=== PATIENT | female | born 1965 | race Caucasian/White ===

== ENCOUNTER 2020-02-25 21:54 | Inpatient (IN) | payer OTHER ==
[2020-02-25] MEDS ORDERED: SODIUM CHLORIDE 0.9% 500 ML 500 ML IV STA (22:12)
[2020-02-25] MEDS ORDERED: ONDANSETRON 4 MG/2 ML VIAL IVP STA (22:12)
[2020-02-25] MEDS ORDERED: KETOROLAC 15 MG/ML 1 ML VIAL IVP STA (22:12)
[2020-02-25] MEDS ORDERED: SODIUM CHLORIDE 0.9% 1,000 ML IV STA (22:12)
[2020-02-25] MEDS ORDERED: ACETAMINOPHEN TAB 325 MG TAB PO STA (22:13)
--- NOTE | 2020-02-25 22:18 | ED ---
Abdominal Pain HPI - General Chief Complaint: Abdominal Pain Stated Complaint: ABD pain Time Seen by Provider: 02/25/20 22:04 Source: patient, RN notes reviewed Mode of arrival: ambulatory Limitations: no limitations - History of Present Illness Initial Comments: This is a 55-year-old female presents emergency Department with chief complaint of abdominal pain, fever. Symptoms started late Monday into Monday. She states that she noticed she did not feel all that she had a fever and started having some abdominal pain. She states it's in her upper and lower abdomen slightly worse on the right compared to the left. Patient did have some nausea vomiting states is related to fever and not feeling well with the pain. Patient has noticed some dysuria but states has now improved. He was taking some Motrin and some cold medications at home she is not taking any recently. No cough or cold-like symptoms no chest pain or shortness breath no headache no dizziness. Patient's had 3 sections no other abdominal surgeries. - Related Data Home Medications Medication Instructions Recorded Confirmed Ibuprofen [Motrin Ib] 800 mg PO Q6H PRN 02/25/20 02/25/20 Allergies Allergy/AdvReac Type Severity Reaction Status Date / Time No Known Allergies Allergy Verified 02/25/20 22:31 Review of Systems ROS Statement: Those systems with pertinent positive or pertinent negative responses have been documented in the HPI. ROS Other: All systems not noted in ROS Statement are negative. Past Medical History Past Medical History: No Reported History History of Any Multi-Drug Resistant Organisms: None Reported Past Surgical History: Section Past Psychological History: No Psychological Hx Reported Smoking Status: Current every day smoker Past Alcohol Use History: Daily Past Drug Use History: None Reported General Exam Limitations: no limitations General appearance: alert, in no apparent distress Head exam: Present: atraumatic, normocephalic, normal inspection Eye exam: Present: normal appearance, PERRL, EOMI. Absent: scleral icterus, conjunctival injection, periorbital swelling ENT exam: Present: normal exam, mucous membranes moist Neck exam: Present: normal inspection, full ROM. Absent: tenderness, meningismus, lymphadenopathy Respiratory exam: Present: normal lung sounds bilaterally. Absent: respiratory distress, wheezes, rales, rhonchi, stridor Cardiovascular Exam: Present: normal rhythm, tachycardia, normal heart sounds. Absent: systolic murmur, diastolic murmur, rubs, gallop, clicks GI/Abdominal exam: Present: soft, tenderness (Right-sided with mild diffuse), normal bowel sounds. Absent: distended, guarding, rebound, rigid Back exam: Present: CVA tenderness (R). Absent: CVA tenderness (L) Neurological exam: Present: alert Skin exam: Present: warm, dry, intact, normal color. Absent: rash Course Vital Signs 02/25/20 21:58 Temperature 101.1 F H Pulse Rate 132 H Respiratory 20 Rate Blood Pressure 167/85 O2 Sat by Pulse 99 Oximetry Medical Decision Making - Medical Decision Making 55-year-old presented to [facility] for abdominal pain fever. Patient's found to have diverticulitis, bilateral pyelonephritis. Patient was started on broad-sp ectrum antibiotics but cultures are drawn patient will be admitted for further treatment and management. - Lab Data Result diagrams: 02/25/20 22:29 02/25/20 22:40 Lab Results 02/25/20 02/25/20 02/25/20 Range/Units 22:29 22:29 22:29 WBC 13.1 H (3.8-10.6) k/uL RBC 3.99 (3.80-5.40) m/uL Hgb 13.0 (11.4-16.0) gm/dL Hct 38.7 (34.0-46.0) % MCV 97.1 (80.0-100.0) fL MCH 32.5 (25.0-35.0) pg MCHC 33.5 (31.0-37.0) g/dL RDW 13.2 (11.5-15.5) % Plt Count 202 (150-450) k/uL MPV 7.8 Neutrophils % 84 % Lymphocytes % 5 % Monocytes % 8 % Eosinophils % 1 % Basophils % 0 % Neutrophils # 10.9 H (1.3-7.7) k/uL Lymphocytes # 0.6 L (1.0-4.8) k/uL Monocytes # 1.0 (0-1.0) k/uL Eosinophils # 0.2 (0-0.7) k/uL Basophils # 0.0 (0-0.2) k/uL Sodium (137-145) mmol/L Potassium (3.5-5.1) mmol/L Chloride (98-107) mmol/L Carbon Dioxide (22-30) mmol/L Anion Gap mmol/L BUN (7-17) mg/dL Creatinine (0.52-1.04) mg/dL Est GFR (CKD-EPI)AfAm (>60 ml/min/1.73 sqM) Est GFR (CKD-EPI)NonAf (>60 ml/min/1.73 sqM) Glucose (74-99) mg/dL Plasma Lactic Acid Phu 1.4 (0.7-2.0) mmol/L Calcium (8.4-10.2) mg/dL Total Bilirubin (0.2-1.3) mg/dL AST (14-36) U/L ALT (4-34) U/L Alkaline Phosphatase (38-126) U/L Total Protein (6.3-8.2) g/dL Albumin (3.5-5.0) g/dL Amylase (30-110) U/L Lipase (23-300) U/L Urine Color Yellow Urine Appearance Cloudy H (Clear) Urine pH 6.5 (5.0-8.0) Ur Specific [place] 1.011 (1.001-1.035) Urine Protein 2+ H (Negative) Urine Glucose (UA) Negative (Negative) Urine Ketones Negative (Negative) Urine Blood Large H (Negative) Urine Nitrite Negative (Negative) Urine Bilirubin Negative (Negative) Urine Urobilinogen <2.0 (<2.0) mg/dL Ur Leukocyte Esterase Moderate H (Negative) Urine RBC 63 H (0-5) /hpf Urine WBC 91 H (0-5) /hpf Urine Bacteria Occasional H (None) /hpf Urine Mucus Rare H (None) /hpf 02/25/20 Range/Units 22:40 WBC (3.8-10.6) k/uL RBC (3.80-5.40) m/uL Hgb (11.4-16.0) gm/dL Hct (34.0-46.0) % MCV (80.0-100.0) fL MCH (25.0-35.0) pg MCHC (31.0-37.0) g/dL RDW (11.5-15.5) % Plt Count (150-450) k/uL MPV Neutrophils % % Lymphocytes % % Monocytes % % Eosinophils % % Basophils % % Neutrophils # (1.3-7.7) k/uL Lymphocytes # (1.0-4.8) k/uL Monocytes # (0-1.0) k/uL Eosinophils # (0-0.7) k/uL Basophils # (0-0.2) k/uL Sodium 127 L (137-145) mmol/L Potassium 3.1 L (3.5-5.1) mmol/L Chloride 94 L (98-107) mmol/L Carbon Dioxide 26 (22-30) mmol/L Anion Gap 7 mmol/L BUN 11 (7-17) mg/dL Creatinine 0.57 (0.52-1.04) mg/dL Est GFR (CKD-EPI)AfAm >90 (>60 ml/min/1.73 sqM) Est GFR (CKD-EPI)NonAf >90 (>60 ml/min/1.73 sqM) Glucose 150 H (74-99) mg/dL Plasma Lactic Acid Phu (0.7-2.0) mmol/L Calcium 8.1 L (8.4-10.2) mg/dL Total Bilirubin 0.5 (0.2-1.3) mg/dL AST 24 (14-36) U/L ALT 25 (4-34) U/L Alkaline Phosphatase 87 (38-126) U/L Total Protein 6.1 L (6.3-8.2) g/dL Albumin 3.3 L (3.5-5.0) g/dL Amylase 33 (30-110) U/L Lipase 57 (23-300) U/L Urine Color Urine Appearance (Clear) Urine pH (5.0-8.0) Ur Specific [place] (1.001-1.035) Urine Protein (Negative) Urine Glucose (UA) (Negative) Urine Ketones (Negative) Urine Blood (Negative) Urine Nitrite (Negative) Urine Bilirubin (Negative) Urine Urobilinogen (<2.0) mg/dL Ur Leukocyte Esterase (Negative) Urine RBC (0-5) /hpf Urine WBC (0-5) /hpf Urine Bacteria (None) /hpf Urine Mucus (None) /hpf Disposition Clinical Impression: Diverticulitis, Pyelonephritis Disposition: ADMITTED IP TO THIS [facility] Condition: Fair Referrals: None,Stated [Primary Care Provider] - 1-2 days
[2020-02-25 22:52] LABS: Appearance,Urine Cloudy (Clear); Bacteria,Urine Occasional /hpf; Bilirubin,Urine Negative (Negative); Blood,Urine Large (Negative); Color,Urine Yellow; Glucose,Urine (UA) Negative (Negative); Ketones,Urine Negative (Negative); Leukocyte Esterase,Urine Moderate (Negative); Mucus,Urine Rare /hpf; Nitrite,Urine Negative (Negative); PH, Urine 6.5 (5.0-8.0); Protein,Urine 2+ (Negative); RBC,Urine 63 /hpf (0-5); Specific Gravity,Urine 1.011 (1.001-1.035); Urobilinogen,Urine <2.0 mg/dL (<2.0); WBC,Urine 91 /hpf (0-5)
[2020-02-25 23:03] LABS: ALT 25 U/L (4-34); AST 24 U/L (14-36); African American GFR (CKD) >90 (>60 ml/min/1.73 sqM); Albumin 3.3 g/dL (3.5-5.0); Alkaline Phosphatase 87 U/L (38-126); Amylase 33 U/L (30-110); Anion Gap 7 mmol/L; Blood Urea Nitrogen 11 mg/dL (7-17); Calcium 8.1 mg/dL (8.4-10.2); Carbon Dioxide 26 mmol/L (22-30); Chloride 94 mmol/L (98-107); Glucose 150 mg/dL (74-99); Lipase 57 U/L (23-300); Non-African American GFR(CKD) >90 (>60 ml/min/1.73 sqM); Potassium 3.1 mmol/L (3.5-5.1); Sodium 127 mmol/L (137-145); Total Bilirubin 0.5 mg/dL (0.2-1.3); Total Protein 6.1 g/dL (6.3-8.2)
[2020-02-25 23:03] LABS: Basophils % (A) 0 %; Eosinophils # (A) 0.2 k/uL (0-0.7); Eosinophils % (A) 1 %; HCT 38.7 % (34.0-46.0); Lymphocytes # (A) 0.6 k/uL (1.0-4.8); Lymphocytes % (A) 5 %; MCH 32.5 pg (25.0-35.0); MCHC 33.5 g/dL (31.0-37.0); MCV 97.1 fL (80.0-100.0); Mean Platelet Volume 7.8; Monocytes % (A) 8 %; Neutrophils # (A) 10.9 k/uL (1.3-7.7); Neutrophils % (A) 84 %; Platelet Count 202 k/uL (150-450); RBC 3.99 m/uL (3.80-5.40); RDW 13.2 % (11.5-15.5); WBC 13.1 k/uL (3.8-10.6)
--- NOTE | 2020-02-25 23:22 | CT ---
EXAMINATION TYPE: CT abdomen pelvis w con DATE OF EXAM: 02/25/2020 COMPARISON: None HISTORY: Abd Pain CT DLP: 1173.90 mGycm Automated exposure control for dose reduction was used. CONTRAST: Performed with IV Contrast, patient injected with 100 mL of Isovue 300. Images obtained from the diaphragm to the floor the pelvis with IV contrast. FINDINGS: Lung bases are clear. There is no pleural effusion. Heart size is normal. There is no pericardial eff usion. Liver spleen stomach pancreas gallbladder appear intact. Bile ducts are not dilated. There is rounded 1.8 cm left adrenal mass intermediate density. There is opacification of both kidneys. There is 2 cm cortical cyst anterior right kidney. There is h eterogeneous cortical enhancement of both kidneys on the delayed images. There is no hydronephrosis. Ureters are not dilated. There is no evidence of retroperitoneal adenopathy. Bladder distends smoothl y. Uterus is anteverted. There is no free fluid in the pelvis. There is no pelvic mass. There are mul tiple sigmoid diverticula. There is some mild fat stranding in the left paracolic gutter adjacent to the proximal sigmoid colon. There is no ascites or free air. There is no bowel obstruction. There is no mesenteric edema. Lumbar vertebra have normal alignment. There is vacuum disc at L5-S1. Facet joints are intact. The bony pelv is is intact. IMPRESSION: Mild inflammatory changes in the left paracolic gutter consistent with some focal diverticulitis invo lving the proximal sigmoid colon. Moderate sigmoid diverticulosis. Heterogeneous enhancement of the renal cortex of both kidneys could relate to multifocal ischemia or multifocal pyelonephritis.
[2020-02-25] MEDS ORDERED: PIPERACILLIN-TAZOBACTAM 3.375 GM in SODIUM CHLORIDE 0.9% 100 ML IVPB STA (23:34)
[2020-02-25] MEDS ORDERED: HYDROmorphone 0.5 MG/0.5 ML SYRINGE IVP STA (23:37)
[2020-02-25] MEDS ORDERED: KETOROLAC 15 MG/ML 1 ML VIAL IVP PRN (23:38)
[2020-02-25] MEDS ORDERED: ACETAMINOPHEN TAB 325 MG TAB PO PRN (23:38)
[2020-02-25] MEDS ORDERED: NALOXONE 0.4 MG/ML 1 ML VIAL IV PRN (23:38)
[2020-02-25] MEDS ORDERED: HYDROmorphone 0.5 MG/0.5 ML SYRINGE IVP PRN (23:38)
[2020-02-26] MEDS: PIPERACILLIN-TAZOBACTAM 3.375 GM in SODIUM CHLORIDE 0.9% 100 ML IVPB SCH ×4 (00:47→23:12)
[2020-02-26] MEDS: HYDROmorphone 1 MG/ML 1 ML SYRINGE IVP PRN (02:27)
[2020-02-26] MEDS: SODIUM CHLORIDE 0.9% 1,000 ML IV SCH ×3 (02:38→17:36)
[2020-02-26 06:13] LABS: Basophils % (A) 0 %; Eosinophils # (A) 0.1 k/uL (0-0.7); Eosinophils % (A) 1 %; HGB 11.4 gm/dL (11.4-16.0); Lymphocytes # (A) 0.5 k/uL (1.0-4.8); Lymphocytes % (A) 5 %; MCHC 34.6 g/dL (31.0-37.0); MCV 98.3 fL (80.0-100.0); Mean Platelet Volume 7.1; Monocytes # (A) 0.9 k/uL (0-1.0); Monocytes % (A) 9 %; Neutrophils # (A) 8.1 k/uL (1.3-7.7); Neutrophils % (A) 82 %; Platelet Count 174 k/uL (150-450); RBC 3.35 m/uL (3.80-5.40); RDW 12.7 % (11.5-15.5); WBC 9.9 k/uL (3.8-10.6)
[2020-02-26] MEDS: PANTOPRAZOLE 40 MG/10 ML VIAL IV SCH ×2 (08:00→17:36)
[2020-02-26 16:34] LABS: African American GFR (CKD) 119.8 (60.0-200.0); Anion Gap 11.3 mmol/L (4.00-12.00); BUN/Creat Ratio 18.33 Ratio (12.00-20.00); Calcium 7.6 mg/dL (8.7-10.3); Carbon Dioxide 24.7 mmol/L (21.6-31.8); Non-African American GFR(CKD) 103.3 (60.0-200.0)
[2020-02-26] MEDS: HEPARIN SODIUM,PORCINE 5,000 UNIT/ML 1 ML VIAL SQ SCH (17:36)
[2020-02-26] MEDS ORDERED: POTASSIUM CHLORIDE ER 20 MEQ TAB.ER PO STA (19:08)
[2020-02-26] MEDS: HYDROcodone/APAP 5-325MG 1 EACH TAB PO PRN (19:36)
[2020-02-26] MEDS: ONDANSETRON 4 MG/2 ML VIAL IVP PRN (20:25)
[2020-02-26] MEDS ORDERED: Potassium Replacement Protocol 1 EACH MISC MISCELLANE PRN (21:29)
--- NOTE | 2020-02-26 21:33 | P.HPIM ---
History of Present Illness H&P Date: 02/26/20 Chief Complaint: Abdominal pain. Patient is a 55-year-old female with a known history of smoking and alcohol use presents to ER with complaints of abdominal pain and fever. Patient states her symptoms started on Monday night patient was having abdominal pain in the upper abdomen and got worse. Later patient developed lower abdominal pain mainly on the left side.Patient also developed fever at home. Patient was nauseated. No episodes of vomiting. Denies any dysuria or hematuria. No cough or sputum production. No chest pain or shortness breath. No runny nose. No recent illnesses or sick contacts. Denies any diarrhea. CT of the abdomen pelvis showed mild inflammatory changes in the left paracolic gutter consistent with some focal diverticulitis involving the proximal sigmoid colon. Moderate sigmoid diverticulosis. Heterogeneous enhancement of the renal cortex in both kidneys could relate to multifocal ischemia multifocal pyelonephritis. Patient was febrile with T-max 101.1 and tachycardic on admission. Pulse ox 99% on room air. Laboratory data showed WBC 13.1, hemoglobin 13.0 and platelets 202 Lymphocyte 0.6 Sodium 127, potassium 3.1 and chloride 94 procalcitonin level 0.35 Urinalysis showed cloudy with 2+ protein large blood and moderate leukocyte esterase with elevated WBCs and RBCs. C. difficile is negative. Review of Systems Constitutional: Fever and chills. . No generalized weakness or weight loss. Abdomen: Patient does have nausea with no episodes of vomiting. Abdominal pain. No diarrhea.n. Cardiovascular: Patient denies any chest pain or short of breath no palpitations. Respiratory: patient denied any cough or sputum production. No shortness of breath Neurologic: Patient denied any numbness or tingling headache. Musculoskeletal: Patient denies any complaints of joint swelling or deformity. Skin: Negative Psychiatric: Negative Endocrine: No heat or cold intolerance. No recent weight gain. Genitourinary: No dysuria or hematuria. All other 14 point ROS negative except the above Past Medical History Past Medical History: No Reported History History of Any Multi-Drug Resistant Organisms: None Reported Past Surgical History: Section Past Psychological History: No Psychological Hx Reported Smoking Status: Current every day smoker Past Alcohol Use History: Daily Past Drug Use History: None Reported - Past Family History Mother Family Medical History: Cancer, COPD Additional Family Medical History / Comment(s): colon ca. blood clot Father Additional Family Medical History / Comment(s): diverticulitis Medications and Allergies Home Medications Medication Instructions Recorded Confirmed Type Ibuprofen [Motrin Ib] 800 mg PO Q6H PRN 02/25/20 02/25/20 History Allergies Allergy/AdvReac Type Severity Reaction Status Date / Time No Known Allergies Allergy Verified 02/25/20 22:31 Physical Exam Vitals: Vital Signs Temp Pulse Pulse Resp BP BP Pulse Ox 02/26/20 08:11 99.9 F H 02/26/20 07:38 98.4 F 100 18 110/69 91 L 02/26/20 01:16 99.2 F 96 17 131/81 95 02/25/20 23:55 99.9 F H 99 16 120/79 96 02/25/20 21:58 101.1 F H 132 H 20 167/85 99 Intake and Output 02/25/20 02/26/20 02/26/20 22:59 06:59 14:59 Intake Total 0 Balance 0 Intake: Oral 0 Other: # Voids 1 Weight 75.75 kg 75.75 kg PHYSICAL EXAMINATION: Patient is lying in the bed comfortably, no acute distress, awake alert and oriented.. HEENT: Normocephalic. Neck is supple. Pupils reactive. Nostrils clear. Oral cavity is moist. Ears reveal no drainage. Neck reveals no JVD, carotid bruits, or thyromegaly. CHEST EXAMINATION: Trachea is central. Symmetrical expansion. Lung villasenor clear to auscultation and percussion. CARDIAC: Normal S1, S2 with no gallops. No murmurs ABDOMEN: Soft.Minimal left lower quadrant tenderness. Bowel sounds normal. No organomegaly. No abdominal bruits. Extremities: reveal no edema. No clubbing or cyanosis Neurologically awake, alert, oriented x3 with well-coordinated movements. No focal deficits noted Skin: No rash or skin lesions. Psychiatric: Coperative. Nonsuicidal Musculoskeletal: No joint swelling or deformity. Normal range of motion. Results CBC & Chem 7: 02/26/20 05:54 02/26/20 05:54 Labs: Abnormal Lab Results - Last 24 Hours (Table) 02/25/20 02/25/20 02/25/20 Range/Units 22:29 22:29 22:40 WBC 13.1 H (3.8-10.6) k/uL RBC (3.80-5.40) m/uL Hct (34.0-46.0) % Neutrophils # 10.9 H (1.3-7.7) k/uL Lymphocytes # 0.6 L (1.0-4.8) k/uL Sodium 127 L (137-145) mmol/L Potassium 3.1 L (3.5-5.1) mmol/L Chloride 94 L (98-107) mmol/L Glucose 150 H (74-99) mg/dL Calcium 8.1 L (8.4-10.2) mg/dL Total Protein 6.1 L (6.3-8.2) g/dL Albumin 3.3 L (3.5-5.0) g/dL Urine Appearance Cloudy H (Clear) Urine Protein 2+ H (Negative) Urine Blood Large H (Negative) Ur Leukocyte Esterase Moderate H (Negative) Urine RBC 63 H (0-5) /hpf Urine WBC 91 H (0-5) /hpf Urine Bacteria Occasional H (None) /hpf Urine Mucus Rare H (None) /hpf 02/26/20 Range/Units 05:54 WBC (3.8-10.6) k/uL RBC 3.35 L (3.80-5.40) m/uL Hct 33.0 L (34.0-46.0) % Neutrophils # 8.1 H (1.3-7.7) k/uL Lymphocytes # 0.5 L (1.0-4.8) k/uL Sodium (137-145) mmol/L Potassium (3.5-5.1) mmol/L Chloride (98-107) mmol/L Glucose (74-99) mg/dL Calcium (8.4-10.2) mg/dL Total Protein (6.3-8.2) g/dL Albumin (3.5-5.0) g/dL Urine Appearance (Clear) Urine Protein (Negative) Urine Blood (Negative) Ur Leukocyte Esterase (Negative) Urine RBC (0-5) /hpf Urine WBC (0-5) /hpf Urine Bacteria (None) /hpf Urine Mucus (None) /hpf Microbiology - Last 24 Hours (Table) 02/25/20 22:29 Urine Culture - Preliminary Urine,Clean Catch Thrombosis Risk Factor Assmnt - DVT/VTE Prophylaxis DVT/VTE Prophylaxis: Pharmacologic Prophylaxis ordered - Choose All That Apply Any of the Below Risk Factors Present?: No Assessment and Plan Assessment: Acute sigmoid diverticulitis Acute urinary tract infection with possible pyelonephritis Sepsis secondary to above Hypovolemic hyponatremia Hypokalemia GI and DVT prophylaxis Plan: Patient will be continued IV hydration and nothing by mouth. Continue with IV antibiotics in the form of Zosyn and pain management. Continue with GI and DVT prophylaxis. Follow-up culture reports. C. difficile is negative. Replace electrolytes and follow-up closely. Further recommendations based on clinical course. Time with Patient: Greater than 30
[2020-02-26] MEDS ORDERED: POTASSIUM CHLORIDE ER 20 MEQ TAB.ER PO SCH (22:00)
[2020-02-27] MEDS: SODIUM CHLORIDE 0.9% 1,000 ML IV SCH ×3 (02:02→23:10)
[2020-02-27] MEDS: HEPARIN SODIUM,PORCINE 5,000 UNIT/ML 1 ML VIAL SQ SCH ×3 (02:03→17:37)
[2020-02-27] MEDS: HYDROmorphone 1 MG/ML 1 ML SYRINGE IVP PRN (02:57)
[2020-02-27 05:59] LABS: Basophils % (A) 0 %; Eosinophils # (A) 0.2 k/uL (0-0.7); Eosinophils % (A) 2 %; HCT 33.8 % (34.0-46.0); HGB 11.1 gm/dL (11.4-16.0); Lymphocytes # (A) 0.9 k/uL (1.0-4.8); Lymphocytes % (A) 9 %; MCH 32.7 pg (25.0-35.0); MCHC 32.7 g/dL (31.0-37.0); Mean Platelet Volume 7.1; Monocytes # (A) 0.6 k/uL (0-1.0); Monocytes % (A) 7 %; Neutrophils # (A) 7.4 k/uL (1.3-7.7); Neutrophils % (A) 79 %; Platelet Count 216 k/uL (150-450); RBC 3.38 m/uL (3.80-5.40); RDW 13.7 % (11.5-15.5); WBC 9.4 k/uL (3.8-10.6)
[2020-02-27] MEDS: PANTOPRAZOLE 40 MG/10 ML VIAL IV SCH (08:59)
[2020-02-27] MEDS: PIPERACILLIN-TAZOBACTAM 3.375 GM in SODIUM CHLORIDE 0.9% 100 ML IVPB SCH ×2 (08:59→17:37)
[2020-02-27] MEDS: HYDROcodone/APAP 5-325MG 1 EACH TAB PO PRN ×2 (09:05→19:16)
[2020-02-27 10:46] LABS: African American GFR (CKD) 119.8 (60.0-200.0); Anion Gap 6.1 mmol/L (4.00-12.00); BUN/Creat Ratio 13.33 Ratio (12.00-20.00); Calcium 8.1 mg/dL (8.7-10.3); Carbon Dioxide 27.9 mmol/L (21.6-31.8); Non-African American GFR(CKD) 103.3 (60.0-200.0); Potassium 3.5 mmol/L (3.5-5.5)
[2020-02-27] MEDS: LORazepam 2 MG/ML INJ IV PRN (19:16)
--- NOTE | 2020-02-28 00:05 | CONS ---
CONSULTATION DATE OF SERVICE: 02/27/2020. REASON FOR CONSULTATION: Gram-negative bacteremia. HISTORY OF PRESENT ILLNESS: The patient is a 55 -year-old female admitted to the hospital 2 days ago for evaluation of abdominal pain. This patient's symptoms started on Monday before he presented to the hospital. The patient is complaining of pain mostly in the lower abdominal area, more of a dull aching 5 to 6/10 and no radiation. The patient also having symptoms of urinary burning, some frequency but no flank pain. The patient also having a fever that concerned the patient. Hence the patient presented to hospital. On arrival to the ER, the patient did have fever of 101.1 degrees Fahrenheit. The patient did have white count 13.1. She did have a positive UA with moderate leukocyte esterases and 1 WBCs. The patient did have stool for C difficile came back negative. Urine showing a Gram-negative. Patient also had blood cultures currently positive with gram-negative that has prompted this infectious disease consultation. The patient did have a CT of abdomen and pelvis which shows mild inflammatory changes in the left paracolic gutter consistent with some possible diverticulitis, but no evidence of any abscess. Kidneys were reported normal. The patient will be treated with Zosyn. Family was consulted for further management because of her bacteremia. REVIEW OF SYSTEMS: Positive points have been mentioned in HPI. Rest of the systems are negative. PAST MEDICAL HISTORY: Some chronic constipation. No other medical illness. PAST SURGICAL HISTORY: . SOCIAL HISTORY: The patient is currently an everyday smoker. Rarely drinks. No drug use. FAMILY HISTORY: No pertinent findings noticed. ALLERGIES: No known drug allergies. MEDICATIONS: The patient is currently on Tylenol, [place], heparin, Dilaudid, Toradol, Ativan, Narcan, Zofran, Protonix, Zosyn and IV fluid. PHYSICAL EXAMINATION: Blood pressure 150/82 with a pulse of 100, temperature 98.2. She is 100% on room air. General description is a middle-aged female up in the bed in no distress. No tachypnea or accessory muscle of respiration use. HEENT: Examination no pallor or scleral icterus. Oral mucosal membranes dry. NECK: Trachea central. No thyromegaly. LUNGS: Unlabored breathing. Clear to auscultation anteriorly. No wheeze or crackles. HEART: S1, S2. Regular rate and rhythm. ABDOMEN: Soft, no tenderness. No guarding. No rigidity. EXTREMITIES: No edema of the feet. SKIN examination: No rash or mass palpable. NEUROLOGICAL: Patient awake, alert and oriented times three. Mood and affect normal. Lactulose 11.1, white count 9.4, BUN of 8, creatinine 0.6, admission was 13.1. Urine showing gram-negative. Blood culture also showing Gram-negative. DIAGNOSTIC IMPRESSION/PLAN: Patient with Gram-negative bacteremia, source is likely urinary as the patient did have predominantly urinary symptoms on presenting to the hospital, also having some component of diverticulitis seen on the CT. However, that has been reported to be mild with no evidence of any complication such as an abscess. PLAN: 1. Blood cultures will be repeated to document clearance of the bacteremia. 2. Zosyn 3.375 grams q.8 hours to continue while waiting for the culture to finalize. 3. We will follow on clinical condition and culture to further adjust medication if needed. Thank you for this consultation. We will follow this patient with you. MMODL / IJN: [id number] /
[2020-02-28] MEDS: HYDROmorphone 1 MG/ML 1 ML SYRINGE IVP PRN (00:10)
[2020-02-28] MEDS: HEPARIN SODIUM,PORCINE 5,000 UNIT/ML 1 ML VIAL SQ SCH ×4 (00:10→20:24)
[2020-02-28] MEDS: PIPERACILLIN-TAZOBACTAM 3.375 GM in SODIUM CHLORIDE 0.9% 100 ML IVPB SCH ×3 (00:10→17:18)
[2020-02-28] MEDS: LORazepam 2 MG/ML INJ IV PRN ×3 (03:17→20:25)
[2020-02-28] MEDS: SODIUM CHLORIDE 0.9% 1,000 ML IV SCH ×3 (05:28→20:26)
[2020-02-28] MEDS: HYDROcodone/APAP 5-325MG 1 EACH TAB PO PRN ×3 (07:55→20:25)
[2020-02-28 07:56] LABS: Basophils % (A) 1 %; Eosinophils # (A) 0.2 k/uL (0-0.7); Eosinophils % (A) 2 %; HCT 32.1 % (34.0-46.0); Lymphocytes # (A) 0.9 k/uL (1.0-4.8); Lymphocytes % (A) 12 %; MCH 33.9 pg (25.0-35.0); MCHC 34.1 g/dL (31.0-37.0); MCV 99.4 fL (80.0-100.0); Mean Platelet Volume 7.2; Monocytes # (A) 0.5 k/uL (0-1.0); Monocytes % (A) 7 %; Neutrophils % (A) 77 %; Platelet Count 252 k/uL (150-450); RBC 3.23 m/uL (3.80-5.40); RDW 13.2 % (11.5-15.5); WBC 7.8 k/uL (3.8-10.6)
[2020-02-28] MEDS: PANTOPRAZOLE 40 MG TABLET PO SCH (07:56)
[2020-02-28 11:17] LABS: African American GFR (CKD) 119.8 (60.0-200.0); Anion Gap 7.8 mmol/L (4.00-12.00); BUN/Creat Ratio 8.33 Ratio (12.00-20.00); Calcium 8.1 mg/dL (8.7-10.3); Carbon Dioxide 27.2 mmol/L (21.6-31.8); Non-African American GFR(CKD) 103.3 (60.0-200.0); Potassium 3.2 mmol/L (3.5-5.5)
[2020-02-28 13:03] VITALS: BMI 23.3
[2020-02-28] MEDS: POTASSIUM CHLORIDE ER 20 MEQ TAB.ER PO SCH ×2 (13:16→15:52)
[2020-02-28] MEDS: NICOTINE 21MG/24HR PATCH TRANSDERM SCH (18:09)
[2020-02-28] MEDS: ONDANSETRON 4 MG/2 ML VIAL IVP PRN (20:24)
--- NOTE | 2020-02-28 22:52 | PN ---
PROGRESS NOTE DATE OF SERVICE: 02/28/2020 REASON FOR FOLLOWUP: E coli bacteremia; source likely UTI. INTERVAL HISTORY: The patient is currently afebrile. The patient is breathing comfortably. The patient's abdominal pain has improved and she wants to eat. Denies having any chest pain or shortness of breath or cough. No abdominal pain. Her urinary symptoms have improved. PHYSICAL EXAMINATION: Blood pressure 142/95 with a pulse of 92, temperature 98.2. She is 98% on room air. General description is a middle-aged female lying in bed in no distress. RESPIRATORY SYSTEM: Unlabored breathing. Clear to auscultation anteriorly. HEART: S1, S2. Regular rate and rhythm. ABDOMEN: Soft. No tenderness. LABS: Hemoglobin is 11, white count 7.9, BUN of 5, creatinine 0.6. Blood culture repeat has been negative so far. DIAGNOSTIC IMPRESSION AND PLAN: Patient with Escherichia coli bacteremia. Source is likely urinary. Also with a component of diverticulitis. However, diverticulitis seems to be mild. The patient is covered with Zosyn. Finish therapy with oral antibiotic on discharge diet to make sure patient tolerating p.o. before transitioning to oral antibiotics. Continue with supportive care. MMODL / IJN: [id number] /
[2020-02-29] MEDS: PIPERACILLIN-TAZOBACTAM 3.375 GM in SODIUM CHLORIDE 0.9% 100 ML IVPB SCH ×2 (00:13→08:08)
[2020-02-29] MEDS: HYDROcodone/APAP 5-325MG 1 EACH TAB PO PRN ×2 (00:20→04:42)
[2020-02-29] MEDS: LORazepam 2 MG/ML INJ IV PRN ×2 (00:21→04:42)
[2020-02-29] MEDS: SODIUM CHLORIDE 0.9% 1,000 ML IV SCH (04:32)
[2020-02-29] MEDS: HEPARIN SODIUM,PORCINE 5,000 UNIT/ML 1 ML VIAL SQ SCH (08:09)
[2020-02-29] MEDS: NICOTINE 21MG/24HR PATCH TRANSDERM SCH (08:09)
[2020-02-29] MEDS: PANTOPRAZOLE 40 MG TABLET PO SCH (08:10)
--- NOTE | 2020-02-29 10:56 | P.PN ---
Subjective Progress Note Date: 02/27/20 Principal diagnosis: Acute urinary tract infection and pyelonephritis Gram-negative bacteremia/E. coli Patient is a 55-year-old female with a known history of smoking and alcohol use presents to ER with complaints of abdominal pain and fever. Patient states her symptoms started on Monday night patient was having abdominal pain in the upper abdomen and got worse. Later patient developed lower abdominal pain mainly on the left side.Patient also developed fever at home. Patient was nauseated. No episodes of vomiting. Denies any dysuria or hematuria. No cough or sputum p roduction. No chest pain or shortness breath. No runny nose. No recent illnesses or sick contacts. Denies any diarrhea. CT of the abdomen pelvis showed mild inflammatory changes in the left paracolic gutter consistent with some focal diverticulitis involving the proximal sigmoid colon. Moderate sigmoid diverticulosis. Heterogeneous enhancement of the renal cortex in both kidneys could relate to multifocal ischemia multifocal pyelonephritis. Patient was febrile with T-max 101.1 and tachycardic on admission. Pulse ox 99% on room air. Laboratory data showed WBC 13.1, hemoglobin 13.0 and platelets 202 Lymphocyte 0.6 Sodium 127, potassium 3.1 and chloride 94 procalcitonin level 0.35 Urinalysis showed cloudy with 2+ protein large blood and moderate leukocyte esterase with elevated WBCs and RBCs. C. difficile is negative. 02/27/2020 Patient says that her abdominal pain is better today. Afebrile. Otherwise blood cultures grew gram-negative bacilli and also urine culture grew gram-ne gative bacilli as well. ID was consulted for antibiotic recommendations. Currently on Zosyn. Denied any nausea vomiting. No diarrhea. No chest pain or shortness of breath. current medications reviewed. Objective - Vital Signs Vital signs: Vital Signs Temp 97.7 F 02/27/20 14:00 Pulse 88 02/27/20 14:00 Resp 16 02/27/20 14:00 BP 131/79 02/27/20 14:00 Pulse Ox 97 02/27/20 14:00 Intake & Output 02/26/20 02/27/20 02/27/20 18:59 06:59 18:59 Intake Total 120 300 472 Output Total 300 Balance -180 300 472 Intake: Oral 120 150 472 Other 150 Output: Stool 300 Other: Voiding Method Toilet Toilet # Voids 2 # Bowel Movements 1 - Exam PHYSICAL EXAMINATION: Patient is lying in the bed comfortably, no acute distress, awake alert and oriented.. HEENT: Normocephalic. Neck is supple. Pupils reactive. Nostrils clear. Oral cavity is moist. Ears reveal no drainage. Neck reveals no JVD, carotid bruits, or thyromegaly. CHEST EXAMINATION: Trachea is central. Symmetrical expansion. Lung villasenor clear to auscultation and percussion. CARDIAC: Normal S1, S2 with no gallops. No murmurs ABDOMEN: Soft. Bowel sounds normal. No organomegaly. No abdominal bruits. Extremities: reveal no edema. No clubbing or cyanosis Neurologically awake, alert, oriented x3 with well-coordinated movements. No focal deficits noted Skin: No rash or skin lesions. Psychiatric: Coperative. Nonsuicidal Musculoskeletal: No joint swelling or deformity. Normal range of motion. - Labs CBC & Chem 7: 02/28/20 07:02 02/28/20 07:02 Labs: Abnormal Lab Results - Last 24 Hours (Table) 02/27/20 02/27/20 Range/Units 05:47 05:47 RBC 3.38 L (3.80-5.40) m/uL Hgb 11.1 L (11.4-16.0) gm/dL Hct 33.8 L (34.0-46.0) % Lymphocytes # 0.9 L (1.0-4.8) k/uL BUN 8.0 L (9.0-27.0) mg/dL Calcium 8.1 L (8.7-10.3) mg/dL Microbiology - Last 24 Hours (Table) 02/25/20 22:30 Blood Culture Gram Stain - Preliminary Blood Blood Culture - Preliminary Gram Neg Bacilli 02/26/20 18:43 Stool Culture - Preliminary Stool 02/25/20 22:29 Urine Culture - Preliminary Urine,Clean Catch Gram Neg Bacilli 02/25/20 22:30 Blood Culture - Final Blood Assessment and Plan Assessment: Acute sigmoid diverticulitis Acute urinary tract infection with possible pyelonephritis Gram-negative bacilli bacteremia Sepsis secondary to above Hypovolemic hyponatremia Hypokalemia GI and DVT prophylaxis Plan: Patient will be continued IV hydration and nothing by mouth. Continue with IV antibiotics in the form of Zosyn and pain management. Continue with GI and DVT prophylaxis. Follow-up culture reports. C. difficile is negative. Replace electrolytes and follow-up closely. Further recommendations based on clinical course. Time with Patient: Greater than 30
--- NOTE | 2020-02-29 10:57 | P.PN ---
Subjective Progress Note Date: 02/28/20 Principal diagnosis: Acute urinary tract infection and pyelonephritis Gram-negative bacteremia/E. coli Patient is a 55-year-old female with a known history of smoking and alcohol use presents to ER with complaints of abdominal pain and fever. Patient states her symptoms started on Monday night patient was having abdominal pain in the upper abdomen and got worse. Later patient developed lower abdominal pain mainly on the left side.Patient also developed fever at home. Patient was nauseated. No episodes of vomiting. Denies any dysuria or hematuria. No cough or sputum p roduction. No chest pain or shortness breath. No runny nose. No recent illnesses or sick contacts. Denies any diarrhea. CT of the abdomen pelvis showed mild inflammatory changes in the left paracolic gutter consistent with some focal diverticulitis involving the proximal sigmoid colon. Moderate sigmoid diverticulosis. Heterogeneous enhancement of the renal cortex in both kidneys could relate to multifocal ischemia multifocal pyelonephritis. Patient was febrile with T-max 101.1 and tachycardic on admission. Pulse ox 99% on room air. Laboratory data showed WBC 13.1, hemoglobin 13.0 and platelets 202 Lymphocyte 0.6 Sodium 127, potassium 3.1 and chloride 94 procalcitonin level 0.35 Urinalysis showed cloudy with 2+ protein large blood and moderate leukocyte esterase with elevated WBCs and RBCs. C. difficile is negative. 02/27/2020 Patient says that her abdominal pain is better today. Afebrile. Otherwise blood cultures grew gram-negative bacilli and also urine culture grew gram-ne gative bacilli as well. ID was consulted for antibiotic recommendations. Currently on Zosyn. Denied any nausea vomiting. No diarrhea. No chest pain or shortness of breath. 02/28/2020 Patient is currently resting in the bed comfortably. Blood cultures and urine cultures showed gram-negative bacteria/E. coli. Continued on Zosyn now. Repeat cultures are pending. Otherwise patient did improve symptomatically and is tolerating oral diet. No fever no chills. No complains of chest pain or sh ortness of breath. No headache or dizziness or lightheadedness. Anticipate discharge once the cultures are finalized. ID is on board. current medications reviewed. Objective - Vital Signs Vital signs: Vital Signs Temp 98.2 F 02/28/20 14:00 Pulse 92 02/28/20 14:00 Resp 16 02/28/20 14:00 BP 142/95 02/28/20 14:00 Pulse Ox 98 02/28/20 14:00 Intake & Output 02/27/20 02/28/20 02/28/20 18:59 06:59 18:59 Intake Total 472 Balance 472 Weight 75.75 kg Intake: Oral 472 Other: Voiding Method Toilet # Voids 1 1 - Exam PHYSICAL EXAMINATION: Patient is lying in the bed comfortably, no acute distress, awake alert and oriented.. HEENT: Normocephalic. Neck is supple. Pupils reactive. Nostrils clear. Oral cavity is moist. Ears reveal no drainage. Neck reveals no JVD, carotid bruits, or thyromegaly. CHEST EXAMINATION: Trachea is central. Symmetrical expansion. Lung villasenor clear to auscultation and percussion. CARDIAC: Normal S1, S2 with no gallops. No murmurs ABDOMEN: Soft. Bowel sounds normal. No organomegaly. No abdominal bruits. Extremities: reveal no edema. No clubbing or cyanosis Neurologically awake, alert, oriented x3 with well-coordinated movements. No focal deficits noted Skin: No rash or skin lesions. Psychiatric: Coperative. Nonsuicidal Musculoskeletal: No joint swelling or deformity. Normal range of motion. - Labs CBC & Chem 7: 02/28/20 07:02 02/28/20 07:02 Labs: Abnormal Lab Results - Last 24 Hours (Table) 02/28/20 02/28/20 Range/Units 07:02 07:02 RBC 3.23 L (3.80-5.40) m/uL Hgb 11.0 L (11.4-16.0) gm/dL Hct 32.1 L (34.0-46.0) % Lymphocytes # 0.9 L (1.0-4.8) k/uL Potassium 3.2 L (3.5-5.5) mmol/L BUN 5.0 L (9.0-27.0) mg/dL BUN/Creatinine Ratio 8.33 L (12.00-20.00) Ratio Calcium 8.1 L (8.7-10.3) mg/dL Microbiology - Last 24 Hours (Table) 02/27/20 11:30 Blood Culture - Preliminary Blood No Growth after 24 hours 02/25/20 22:30 Blood Culture Gram Stain - Final Blood Blood Culture - Final Escherichia coli 02/25/20 22:29 Urine Culture - Final Urine,Clean Catch Escherichia coli Assessment and Plan Assessment: Acute sigmoid diverticulitis Acute urinary tract infection with possible pyelonephritis. Urine culture showed E. coli. Gram-negative bacilli bacteremia/E. coli bacteremia. Sepsis secondary to above Hypovolemic hyponatremia Hypokalemia GI and DVT prophylaxis Plan: Patient will be continued IV hydration and nothing by mouth. Continue with IV antibiotics in the form of Zosyn and pain management. Continue with GI and DVT prophylaxis. Follow-up repeat blood culture reports. C. difficile is negative. Replace electrolytes and follow-up closely. Further recommendations based on clinical course. Time with Patient: Greater than 30
[2020-02-29 14:40] VITALS: BP 152/96; PULSE 58; RESP 18; TEMP 98.1
--- NOTE | 2020-02-29 14:55 | PN ---
PROGRESS NOTE DATE OF SERVICE: 02/29/2020 REASON FOR FOLLOWUP: E coli pyelonephritis and diverticulitis. INTERVAL HISTORY: The patient is currently afebrile. The patient is feeling better. Breathing comfortably. Denies having any chest pain. No shortness of breath or cough. No abdominal pain. No diarrhea. Urinary symptoms have improved. PHYSICAL EXAMINATION: Blood pressure 154/90, pulse 88, temp is 97.2. She is 96% on room air. General description is a middle-aged female lying in bed in no distress. Respiratory system: Unlabored breathing. Clear to auscultation anteriorly. Heart S1, S2. Regular rate and rhythm. Abdomen: Soft, no tenderness. LABS: Repeat blood culture has been negative so far. DIAGNOSTIC IMPRESSION AND PLAN: Patient with E coli bacteremia source likely pyelonephritis in this patient with component of diverticulitis. Overall improvement on Zosyn, antibiotic will be adjusted to Cipro and Flagyl for 10 days. Prescription to pharmacy. Outpatient follow up in a week or two. Continue supportive care. MMODL / IJN: [id number] /
== END 2020-02-29 16:39 | disposition home or self-care (01) | DRG 872 ==
LOC: EC 21:54 → 5NMEDONC 23:43
PROVIDERS: ADMIT Internal Medicine; ATTEND Internal Medicine
DX: A41.51 Sepsis due to Escherichia coli [E. coli] (principal); K57.32 Diverticulitis of large intestine without perforation or abscess without bleeding; E87.1 Hypo-osmolality and hyponatremia; N12 Tubulo-interstitial nephritis, not specified as acute or chronic; F17.200 Nicotine dependence, unspecified, uncomplicated; E86.1 Hypovolemia; E87.6 Hypokalemia; Z98.891 History of uterine scar from previous surgery; Z82.5 Family history of asthma and other chronic lower respiratory diseases; Z80.0 Family history of malignant neoplasm of digestive organs
CPT/HCPCS: 36415; 74177; 80048; 80053; 81001; 82150; 83605; 83690; 84145; 85025; 87040; 87045; 87046; 87077; 87086; 87186; 87324; 96361; 96365; 96375; 99285